=== PATIENT | male | born 1960 | race Caucasian/White ===

== ENCOUNTER 2019-02-08 12:15 | Emergency (ER) | payer MEDICARE ==
[~2019-02-08] VITALS: Ht 177.8 cm; Wt 81.7 kg
[~2019-02-08 12:15] MED LIST: ALBU90OI INH; ALBU90OI61; ALBU90OI61 INH; ASPI325 PO; ASPI81CH PO; AZIT250 PO; BUDE6HFA INH; CARV6.25 PO; CHOL10002 PO; DALIRESP500 MCG PO; Duoneb 2.5-0.5 M3 ML INH; FISH1000; FISH1000 PO; FLUSAL2505 INH; GABA100 PO; GABA600 PO; GUAI600T33 PO; Garlic1000 MG PO; Hair, Skin & N1 EACH PO; IRON PO; Iron Supplemen325 MG PO; L-LYSINE500 MG PO; L-Lysine500 M1 PO; LEVFLO500 PO; LOSA25 PO; LOSA50 PO; MAGOXI400; MAGOXI400 PO; MONT10T PO; Multi-Day Vita1 EACH PO; NICO21TP TOP; OXYACE5T PO; PROM25 PO; Prednisone10 M1 PO; Prednisone20 MG PO; ROFL500T; ROPI1 PO; RXOXYACE PO; RXPROM25 PO; SILD25T PO; SPIR25 PO; TIOT18 INH; TIOT18 PO; TOCO400 PO; TORSE20 PO; Ventolin Soln3 ML INH; Zinc Sulfate220 M1 PO
[2019-02-08 13:06] LABS: BASOPHILS ABSOLUTE AUTO 0.12 K/mm3 (0.00-0.23); BASOPHILS PERCENT AUTO 1 % (0-2); EOSINOPHILS ABSOLUTE AUTO 0.43 K/mm3 (0.00-0.68); EOSINOPHILS PERCENT AUTO 4 % (0-6); Hemoglobin 13.8 g/dL (13.5-17.5); IMMATURE GRAN ABSOLUTE AUTO 0.05 K/mm3 (0.00-0.10); IMMATURE GRAN PERCENT AUTO 1 % (0-1); LYMPHOCYTES ABSOLUTE AUTO 3.48 K/mm3 (0.84-5.20); LYMPHOCYTES PERCENT AUTO 32 % (21-46); MONOCYTES ABSOLUTE AUTO 0.72 K/mm3 (0.16-1.47); MONOCYTES PERCENT AUTO 7 % (4-13); Mean Corpuscular HGB 30.5 pg (26.0-34.0); Mean Corpuscular HGB Conc 33.7 g/dL (31.5-36.5); Mean Corpuscular Volume 91 fL (80-100); Mean Platelet Volume 9.3 fL (9.1-12.4); NEUTROPHILS PERCENT AUTO 56 % (41-73); Platelet Count 364 K/mm3 (150-400); RDW Coefficient Variation 12.9 % (11.7-14.2); RDW Standard Deviation 42.8 fL (35.1-46.3); Red Blood Cell Count 4.53 M/mm3 (4.30-5.90)
[2019-02-08 13:24] LABS: Alanine Aminotransfer (ALT/SGP 23 U/L (12-78); Albumin, Blood 3.6 g/dL (3.4-5.0); Albumin/Globulin Ratio 0.9 (0.8-1.8); Alk Phos 99 U/L (50-136); Anion Gap 6 mmol/L (6-16); Aspartate Aminotrans (AST/SGOT 24 U/L (12-37); Bilirubin, Total 0.5 mg/dL (0.1-1.0); Blood Urea Nitrogen 21 mg/dL (8-24); Bun/Creatinine Ratio 20.4 (12.0-20.0); CO2, Blood 28 mmol/L (21-32); Calcium, Blood 8.6 mg/dL (8.5-10.1); Chloride, Blood 104 mmol/L (98-108); Creatinine, Blood 1.03 mg/dL (0.60-1.20); Globulin, Blood 4.2 g/dL (2.2-4.0); Glomerular Filtration Rate >60 (60-); Glucose, Blood 126 mg/dL (70-99); Potassium, Blood 3.4 mmol/L (3.5-5.5); Sodium, Blood 138 mmol/L (136-145); Total Protein, Blood 7.8 g/dL (6.4-8.2); Troponin I <0.015 ng/mL (0.000-0.040)
[2019-02-08] MEDS ORDERED: HYDR1TAB94 PO (17:28)
== END 2019-02-08 17:45 | disposition home or self-care (01) ==
LOC: ER 12:15
PROVIDERS: Physician Assistant
DX: R07.89 Other chest pain (principal); Z88.8 Allergy status to other drugs, medicaments and biological substances; Z79.82 Long term (current) use of aspirin; Z79.899 Other long term (current) drug therapy; J44.9 Chronic obstructive pulmonary disease, unspecified; I50.9 Heart failure, unspecified; Z87.891 Personal history of nicotine dependence
CPT/HCPCS: 36415; 71046; 71260; 80053; 83880; 84484; 85025; 85379; 93005; 93010; 99284-25; Q9967

== ENCOUNTER → 2020-11-21 | Outpatient (CLI) | payer MEDICARE ==
[~2020-11-21] MED LIST changes: +HYDR1TAB94 PO
== END ==
LOC: OLS 11:03 → LAB SHORT 11:03
DX: G60.9 Hereditary and idiopathic neuropathy, unspecified (principal)
CPT/HCPCS: 82607; 82746

== ENCOUNTER 2022-07-25 07:37 | Day surgery (SDC) | payer MEDICARE, OTHER ==
[~2022-07-25] VITALS: Ht 177.8 cm; Wt 78.0 kg
--- NOTE | 2022-07-25 10:32 | NUR ---
PT ARRIVED BACK TO RECOVERY ROOM IN [facility]CL[facility]. LACW BIV-ICD CHANGE OUT SITE SOFT NON-TENDER WITH NO HEMATOMA, NO BLEEDING AND INTACT DRESSING. PT DENIES CHEST PAIN. DR BRIGGS IN ROOM TO SEE PT. PT'S IN ROOM. PT IS EATING BREAKFAST. CALL LIGHT IN REACH.
--- NOTE | 2022-07-25 11:31 | NUR ---
DISCHARGE INSTRUCTIONS REVIEWED ALL QUESTIONS ANSWERED. 20 G IV DISCONTINUED FROM LEFT AC WITH INTACT CANNULA. REVIEWED WOUND SITE WITH PT'S . PT ESCORTED OUT VIA WHEELCHAIR ESCORT.
== END 2022-07-25 11:30 | disposition home or self-care (01) ==
LOC: MHTC 07:37
DX: Z45.010 Encounter for checking and testing of cardiac pacemaker pulse generator [battery] (principal); J43.9 Emphysema, unspecified; I44.7 Left bundle-branch block, unspecified; I11.0 Hypertensive heart disease with heart failure; I50.20 Unspecified systolic (congestive) heart failure; Z95.810 Presence of automatic (implantable) cardiac defibrillator; G47.33 Obstructive sleep apnea (adult) (pediatric); Z87.891 Personal history of nicotine dependence; Z79.899 Other long term (current) drug therapy; Z88.8 Allergy status to other drugs, medicaments and biological substances
CPT/HCPCS: 33264; 99152; 99153; C1781; C1882; J0690; J1644; J2250; J3010; J7030; J7040

== ENCOUNTER 2022-07-29 12:43 | Emergency (ER) | payer MEDICARE, OTHER ==
[~2022-07-29] VITALS: Ht 177.8 cm; Wt 74.8 kg
== END 2022-07-29 13:59 | disposition home or self-care (01) ==
LOC: ER 12:43
DX: I80.8 Phlebitis and thrombophlebitis of other sites (principal); J44.9 Chronic obstructive pulmonary disease, unspecified; I50.9 Heart failure, unspecified; Z79.899 Other long term (current) drug therapy; Z79.82 Long term (current) use of aspirin; Z95.0 Presence of cardiac pacemaker; Z87.891 Personal history of nicotine dependence
CPT/HCPCS: 93971

== ENCOUNTER → 2025-04-26 | Outpatient (CLI) | payer MEDICARE ==
[2025-04-26 16:11] LABS: Stool Occult Bld Immuno 1 Negative (NEGATIVE)
== END ==
LOC: LAB SHORT 08:45 → LAB 08:45
PROVIDERS: Physician Assistant
DX: Z12.11 Encounter for screening for malignant neoplasm of colon (principal)
CPT/HCPCS: G0328